=== PATIENT | female | born 1995 | race Caucasian/White ===

== ENCOUNTER 2020-05-13 15:38 | Emergency (ER) | payer OTHER ==
[~2020-05-13] VITALS: Ht 170.2 cm; Wt 113.4 kg
[2020-05-13 15:40] VITALS: Ht 170.2 cm; Wt 113.4 kg
[2020-05-13 18:10] VITALS: BP 134/84
== END 2020-05-13 18:10 | disposition home or self-care (01) ==
LOC: ED 15:38
DX: B34.9 Viral infection, unspecified (principal); Z20.828 Contact with and (suspected) exposure to other viral communicable diseases
CPT/HCPCS: Q0092